=== PATIENT | female | born 1990 | race Caucasian/White ===

== ENCOUNTER → 2017-04-02 08:26 | Outpatient (CLI) | payer MEDICAID, SELFPAY ==
[2017-04-07 07:49] LABS: HPV Reflexed? NOT INDICATED
== END ==
PROVIDERS: Family Provider Nurse Practitioner Family; PCP Nurse Practitioner Family; Visit Provider Obstetrics & Gynecology
DX: Z12.4 Encounter for screening for malignant neoplasm of cervix (principal)
CPT/HCPCS: 88175; G0145

== ENCOUNTER → 2017-05-10 15:18 | Outpatient (CLI) | payer MEDICAID, SELFPAY ==
--- NOTE | 2017-05-10 15:25 | CT_ITS ---
STUDY: CT CHEST/THORAX WITH CONTRAST REASON FOR EXAM: Female, 26 years old. Cough, chest tightness, asthma. RADIATION DOSAGE (If Supplied By Facility): CTDIvol = ( 15.27 ) mGy, DLP = ( 501.76 ) mGycm TECHNIQUE: Transaxial imaging was performed following intravenous administration of 100 ml of Isovue 300 contrast material. Multiplanar coronal and sagittal images were reformatted. Individualized dose optimization techniques were used for this CT. COMPARISON: PA and lateral chest x-ray March 06, 2017. FINDINGS: There is subsegmental volume loss with crowding and mild retraction of the nearby fissure in the lateral periphery of the right upper lobe. Similar finding that could be subsegmental crowding or pneumonitis seen in the lateral periphery of the left upper lobe above the level of the thoracic aortic arch. Discoid 6 mm density suggesting a focus of scarring seen in the lateral right middle lobe abutting the pleural surface on series 4 image 72, series 601 image 51. There is no demonstrated pleural abnormality. Normal heart and pericardium. Small wedge-shaped density in the anterior mediastinum consistent with thymic tissue. Normal hilar regions. For the exclusion of pulmonary emboli, there is suboptimal enhancement of the pulmonary arteries compared to the left heart and arterial structures. Allowing for that, however, there is no demonstrated pulmonary embolus Normal aorta arch and descending thoracic aorta. There are degenerative changes of the lower thoracic spine. Incidental note of osseous fusion across the sternomanubrial articulation. There is no demonstrated abnormality of the visualized upper abdomen. CT/Chest WITH Contrast IMPRESSION: 1. Small subsegmental sites of volume loss versus interstitial pneumonitis in the lateral right upper lobe and lateral left upper lobe. 2. Probable 6 mm discoid focus of scarring in the lateral right middle lobe. Electronically Signed: Bobby Gunter MD at 18:30 EST , Service support ,
== END ==
PROVIDERS: Family Provider Nurse Practitioner Family; PCP Nurse Practitioner Family; Visit Provider Nurse Practitioner Family
DX: R05 Cough (principal); R07.89 Other chest pain; J45.40 Moderate persistent asthma, uncomplicated
CPT/HCPCS: 71260; Q9967

== ENCOUNTER → 2017-08-07 11:10 | Outpatient (CLI) | payer MEDICAID, SELFPAY ==
[2017-08-07 12:49] LABS: Hemoglobin A1c 6.1 % (4.2-6.3)
[2017-08-07 12:51] LABS: Cholesterol 154 mg/dL (200); High Density Lipoprotein 50 mg/dL; T4 Free Direct 1.25 ng/dL (0.76-1.46); Thyroid Stim Hormone (TSH) 1.08 uIU/mL (0.358-3.74); Triglycerides 150 mg/dL; Very Low Density Lipoprotein 30 mg/dL (5-40)
== END ==
PROVIDERS: Family Provider Nurse Practitioner Family; PCP Nurse Practitioner Family; Visit Provider Nurse Practitioner Family
DX: E03.9 Hypothyroidism, unspecified (principal); E78.1 Pure hyperglyceridemia; R73.01 Impaired fasting glucose
CPT/HCPCS: 36415; 80061; 83036; 84439; 84443

== ENCOUNTER → 2017-09-17 07:58 | Outpatient (CLI) | payer MEDICAID, SELFPAY ==
--- NOTE | 2017-09-17 10:55 | PFTCOMP ---
COMPLETE PULMONARY FUNCTION TEST INTERPRETATION Brief HPI: Patient is a 27 year old female, currently under the care of Dr. Seymour, who presents to [facility] for complete pulmonary function tests secondary to diagnosis of dyspnea. Respiratory therapist reports good effort and reproducible results. Interpretation: Forced expiration spirometry shows no large airways obstructive ventilatory defect with an FEV1 of 96% predicted. There is no significant bronchodilator response by ATS criteria. Spirograms are of good quality and plateau normally. The respiratory flow volume loop shows a normal pattern. Lung volumes by body plethysmography show a normal total lung capacity at 6.54 L, 106% predicted. All other lung volumes are within normal limits. Diffusion capacity by carbon monoxide is normal at 94% predicted. The airway resistance is normal. No previous pulmonary function tests were available for review. Impression: These pulmonary function tests are within normal limits.
--- NOTE | 2017-09-17 11:08 | PFTCOMP_ITS ---
COMPLETE PULMONARY FUNCTION TEST INTERPRETATION Brief HPI: Patient is a 27 year old female, currently under the care of Dr. Seymour , who presents to [facility] for complete pulmonary function tests secondary to diagnosis of dyspnea. Respiratory therapist reports good effort and reproducible results. Interpretation: Forced expiration spirometry shows no large airways obstructive ventilatory defect with an FEV1 of 96% predicted. There is no significant bronchodilator response by ATS criteria. Spirograms are of good quality and plateau normally. The respiratory flow volume loop shows a normal pattern. Lung volumes by body plethysmography show a normal total lung capacity at 6.54 L , 106% predicted. All other lung volumes are within normal limits. Diffusion capacity by carbon monoxide is normal at 94% predicted. The airway resistance is normal. No previous pulmonary function tests were available for review. Impression: These pulmonary function tests are within normal limits.
== END ==
PROVIDERS: Family Provider Nurse Practitioner Family; PCP Nurse Practitioner Family; Visit Provider Internal Medicine Critical Care Medicine
DX: R06.02 Shortness of breath (principal)
CPT/HCPCS: 94060; 94726; 94729

== ENCOUNTER 2017-10-12 18:57 | Emergency (ER) | payer MEDICAID, SELFPAY ==
[2017-10-12 18:59] VITALS: BP 138/79; PULSE 77; RESP 18; TEMP 36.4; O2SAT 99; BMI 29.0
--- NOTE | 2017-10-12 19:17 | CT_ITS ---
STUDY: CT ABDOMEN AND PELVIS WITHOUT CONTRAST REASON FOR EXAM: Female, 27 years old. Lower abdominal pain. RADIATION DOSAGE (If Supplied By Facility): CTDIvol = ( 14.81 ) mGy, DLP = ( 762.37 ) mGycm TECHNIQUE: Transaxial images were obtained from the dome of the diaphragm to the symphysis pubis without oral contrast, and without intravenous contrast. Sagittal and coronal images were reconstructed. Individualized dose optimization techniques were used for this CT. COMPARISON: None. FINDINGS: Evaluation of the abdominal viscera is limited in the absence of intravenous contrast. The visualized lung bases are clear. The visualized portions of the heart and pericardium are within normal limits. The patient is status post cholecystectomy. The liver is low in density, consistent with fatty infiltration. The spleen is normal in size. The pancreas demonstrates an unremarkable unenhanced appearance. The adrenal glands are within normal limits. There are no renal or ureteral stones. There is no hydronephrosis. Normal visualized stomach. There is no bowel obstruction or inflammation. The appendix is visualized and appears normal. There is an ovoid fat density structure adjacent to the sigmoid colon with adjacent inflammation and stranding (image 80 series 601, image 70 series 602 and image 142 series 2). This is consistent with epiploic appendagitis. The aorta is normal in caliber. There is no abdominal or pelvic free air, free fluid, fluid collection or lymphadenopathy. There are no destructive osseous lesions. CT/Abdomen/Pelvis without Cont IMPRESSION: Epiploic appendagitis adjacent to the sigmoid colon. No bowel obstruction or inflammation. Normal appendix. No urinary calculi. No hydronephrosis. Fatty liver. Electronically Signed: Scotty Romero, at 20:59 EDT Tel , Service support ,
[2017-10-12 19:43] LABS: Absolute Lymphocyte Count 1.48 X10^3/ul (0.83-4.51); Basophil# 0.02 X10^3/uL; Basophil% 0.3 % (0-1); Eosinophil# 0.49 X10^3/uL; Eosinophils% 6.6 % (0-5); Lymphocyte # 1.48 X10^3/ul (4.0); Lymphocyte % 19.9 % (19-41); Mean Corp Hgb Conc 33.3 g/gl (32-36); Mean Corpuscular Hgb 29.2 pg (27.0-32.0); Mean Corpuscular Volume 87.7 fL (81-99); Mean Platelet Vol. 11.4 fl (6.2-12.0); Monocyte% 6.7 % (0-10); Neutrophil # 4.95 X10^3/uL (2.7-7.7); Neutrophil % 66.4 % (47-70); POSITIVE COUNT NO; POSITIVE DIFFERENTIAL NO; POSITIVE MORPHOLOGY NO; Platelet Count 201 K/mm3 (150-450); RBC Distribution Width CV 13.1 % (11.6-14.6); RBC Distribution Width SD 41.7 fl (35.1-43.9); Red Blood Count 4.79 M/mm3 (4.2-5.4); White Blood Count 7.5 K/mm3 (4.4-11.0)
[2017-10-12] MEDS: 0.9% Normal Saline 1,000 ML 1000 ML IV (19:44)
[2017-10-12] MEDS: Ondansetron 4 MG/2 ML Vial IV (19:44)
[2017-10-12] MEDS: Ketorolac 30 MG/ML Syringe IV (19:44)
[2017-10-12 19:55] LABS: Bacteria 0 SEEN /hpf (None Seen); Mucous, Urine 0 SEEN /hpf (<or=2+); Red Blood Cells-Urine 0 SEEN /hpf (0-5)
[2017-10-12 19:56] LABS: Anion Gap 7 (5-15); BUN 13 mg/dL (7-18); BUN/Creat Ratio 16.3 RATIO (10-20); Calcium,Total 9.1 mg/dL (8.5-10.1); Chloride 104 mmol/L (98-107); EST Glomerular Filtration Rate 92 mL/min (>60); Est Glom Filt Rate - Afr Amer 111 mL/min (>60); Estimated Creatinine Clearance 110.39 ml/min; Glucose 98 mg/dL (74-106); Potassium 3.8 mmol/L (3.5-5.1); Sodium Level 139 mmol/L (136-145)
[2017-10-12 20:19] LABS: Color, Urine Yellow (Yellow); Glucose, Dipstick Normal (Normal); Ketone-Dipstick 15 mg/dl (Negative); Leukocyte Esterase-Dipstick 25 /ul (Negative); Nitrite-Dipstick Negative (Negative); Occult Blood-Urine Negative /ul (Negative); Protein-Dipstick 15 mg/dl (Negative); Specific Gravity, Urine 1.015 (1.002-1.030); Urine Clarity Sl. Cloudy (Clear); Urine Urobilinogen Normal (Normal)
[2017-10-12 20:33] LABS: Pregnancy, Serum, hCG Quali. NEGATIVE Negative (0-9 Nonpreg)
[2017-10-12 20:50] LABS: Urine Bilirubin Dipstick 1 mg/dL (Negative)
[2017-10-12 20:51] LABS: Squamous Epithelial Cells - UA 5-10 SEEN /hpf (5-10); White Blood Cells 5-10 SEEN /hpf (0-5)
[2017-10-12] MEDS: 0.9% Normal Saline 1,000 ML 150 ML IV (21:00)
--- NOTE | 2017-10-12 21:28 | ED.VISSUMM ---
- ER Visit Summary Date of Service: 10/12/17 Chief Complaint: Abdominal pain History of Present Illness: The patient is a 27 F who presents with abdominal pain for the last 2 weeks. She describes it as a generalized abdominal cramping and nausea. She was seen in urgent care and given 7 days of antibiotics for UTI. She finished these yesterday. Patient states her symptoms are not really improved. She has not had fever. She has no dysuria or vaginal discharge. She has had normal bowel movements. Physical Examination: Vital signs are unremarkable. Patient sitting upright in bed. She is nontoxic appearing. Head neck examination is normal. Heart is regular rate and rhythm. Lung sounds are clear. Abdomen is soft with mild lower abdominal tenderness on exam. No guarding or rebound. She has no back or CVA tenderness. Test Results: CBC and chemistry studies are normal. Urinalysis shows no sign of acute infection. Patency test is negative. CT flank shows epiploic appendigitis adjacent to the sigmoid colon. Normal appendix is noted. No bowel inflammation noted. Emergency Department Course and Treatment: Patient was given IV fluids, Toradol, and Zofran. On repeat evaluation she does feel improved. Test results were discussed with her. I did advise her that this is a self-limited condition and will improve on its own. She does feel better after Toradol and Zofran will be given prescriptions for the same. Treatment Plan: [] Disposition: Discharge Impression: Epiploic appendigitis This note was generated with [employer] dictation software. It may contain incorrect words, spelling, and punctuation that were not noted in review of the chart prior to signing ED Disposition - Plan for ED Patient: Chief Complaint: Abd Pain Referrals: Manny Sinha, FOUR CORNER STAYER MACHINE OPERATOR-C [Primary Care Provider] -
--- NOTE | 2017-10-12 21:33 | DCINST.ED_ITS ---
ED Disposition - Plan for ED Patient: Disposition: Home or Assisted Living Chief Complaint: Abd Pain Prescriptions: Ondansetron [Zofran Odt] 4 mg PO Q8H PRN PRN #10 tablet PRN Reason: Nausea Ketorolac [Toradol] 10 mg PO Q6H PRN #20 tablet PRN Reason: Pain Referrals: Manny Sinha, ELECTRONIC SCANNER OPERATOR-C [Primary Care Provider] - 1 Week Additional Instructions: Your CT scan reveals epiploic appendigitis. This is inflammation of the fat that surrounds the intestine. It is a self limited condition and will get better on it's own.
[2017-10-12 21:39] VITALS: BP 124/77; PULSE 61; RESP 15; O2SAT 99
== END 2017-10-12 21:40 | disposition home or self-care (01) ==
PROVIDERS: Emergency Provider Emergency Medicine; Family Provider Nurse Practitioner Family; PCP Nurse Practitioner Family
DX: K36 Other appendicitis (principal); J45.909 Unspecified asthma, uncomplicated; Z79.899 Other long term (current) drug therapy; Z87.440 Personal history of urinary (tract) infections; Z87.19 Personal history of other diseases of the digestive system
CPT/HCPCS: 74176; 80048; 81001; 84703; 85025; 96361; 96374; 96375; 99283; J7030; A4216; J2405

== ENCOUNTER → 2017-10-21 20:00 | Outpatient (CLI) | payer MEDICAID, SELFPAY | PROVIDERS: Family Provider Nurse Practitioner Family; PCP Nurse Practitioner Family; Visit Provider Nurse Practitioner Acute Care | DX: G47.19 Other hypersomnia (principal) | CPT/HCPCS: 95810 ==

== ENCOUNTER → 2018-01-10 08:57 | Outpatient (CLI) | payer MEDICAID, SELFPAY ==
--- NOTE | 2018-01-10 09:08 | RAD_ITS ---
STUDY: AIR-CONTRAST UPPER GI SERIES. REASON FOR EXAM: Female, 27 years old. Tightness of the throat. Feels a lump in the throat. FLUOROSCOPY TIME (if supplied): (0:30) minutes/seconds. 20 fluoroscopic images were obtained. TECHNIQUE: The patient ingested barium. Multiple images of the esophagus, stomach and duodenum were obtained. COMPARISON: None. FINDINGS: The esophagus is unremarkable. There is no evidence of esophageal obstruction. No mass lesion is seen. There is no evidence of gastroesophageal reflux. The stomach and duodenum are unremarkable. No evidence of ulceration. No mass lesion is present. IMPRESSION: Unremarkable air contrast upper GI series. Electronically Signed: Sumanth Richards MD at 9:06 EST Tel [phone], Service support , STUDY: X-RAY - ESOPHAGUS (BARIUM SWALLOW) WITH FLUOROSCOPY REASON FOR EXAM: Female, 27 years old. Throat tightness. Feels a lump. TECHNIQUE: 19 view(s) of the esophagus were obtained following swallowing of barium. FLUOROSCOPY TIME (if supplied): (0:15) minutes/seconds COMPARISON: None. FINDINGS: There is no demonstrated esophageal foreign body. There is no demonstrated stricture or mucosal abnormality. Normal gastroesophageal junction, without a demonstrated hiatal hernia. The patient ingest a 12 mm tablet of barium without any difficulty. Normal visualized aortic arch and descending thoracic aorta. Normal visualized pulmonary parenchyma. Normal visualized osseous structures of the thorax. RAD/Upper GI w/BA Swallow IMPRESSION: Normal plain film x-ray examination (barium swallow) of the esophagus. Electronically Signed: Sumanth Richards MD at 9:07 EST Tel [phone], Service support ,
== END ==
PROVIDERS: Family Provider Nurse Practitioner Family; PCP Nurse Practitioner Family; Referring Provider Surgery; Visit Provider Surgery
DX: K21.9 Gastro-esophageal reflux disease without esophagitis (principal)
CPT/HCPCS: 74246

== ENCOUNTER → 2018-01-18 12:53 | Outpatient (CLI) | payer MEDICAID, SELFPAY ==
--- NOTE | 2018-01-18 16:00 | BRONCHALL_ITS ---
Bronchoprovocation Challenge - Bronchoprovocation Challenge Bronchoprovocation Challenge: BRONCHOPROVOCATION STUDY INTERPRETATION Brief HPI: Patient is a 27 year old fe-male, currently under the care of Dr. Seymour, who presents to [facility] for a bronchoprovocation study secondary to diagnosis of dyspnea. Respiratory therapist reports good effort and reproducible results. Interpretation: Initial spirometry showed no large airways obstructive ventilatory defect. The patient was then given increasingly concentrated doses of methacholine in a stepwise fashion, using a modified ATS protocol. The patient had a significant reduction in FEV1 by 22% and a calculated PD20 of 0.549. Impression: Positive Bronchoprovocation study. This in a range that is not diagnostic of asthma.
== END ==
PROVIDERS: Family Provider Nurse Practitioner Family; PCP Nurse Practitioner Family; Referring Provider Internal Medicine Critical Care Medicine; Visit Provider Internal Medicine Critical Care Medicine
DX: R06.02 Shortness of breath (principal)
CPT/HCPCS: 94070; 95070; J3490; J7674

== ENCOUNTER 2018-01-21 06:51 | Day surgery (SDC) | payer MEDICAID, SELFPAY ==
--- NOTE | 2018-01-21 | IMM_PTH ---
PATIENT: BALDO KAPLAN LOC: EN U#:[id number] AGE/SX: 27/F ROOM: RE01/21/[address]: Dr. Jae Oates MD : 1990 BED: DIS: 01/21/2018 SPEC #: [id number] RECD: 01/24/18 10:28 STATUS: GER PRIMO #: [id number] RYLEE: 01/21/18 00:[address]: Jae Oates DEPT: IMMUNOHISTOCHEMISTRY RECD BY: Domitila Aly ENTERED: 01/24/18 10:28 SP TYPE: IMMUNO OTHR DR: Manny Sinha, NEON TUBE PUMPER-C Tissues: A - Stomach, NOS Procedures: H Pylori (initial) PHYSICIAN & INSTITUTION [place] [id number] SPECIMEN INFORMATION: Tissue Source: A - Antral biopsy Clinical Info: GERD Specimen Number: [id number] CPT code: 97680 METHODOLOGY: Deparaffinized sections of prefer/formalin-fixed tissue or PAP/DQ stained slides are incubated with monoclonal/polyclonal antibodies/oligonucleotide probes. Localization is made via biotin free immunoperoxidase method. Appropriate controls are performed and reacted as expected. Results on target cell population are indicated in the following table: RESULTS: ANTIBODY / CLONE RESULT Block A H Pylori (polyclonal) negative These tests were developed and their performance characteristics determined by [facility]. They may not have been cleared or approved by the U.S. Food and Drug Administration. The FDA has determined that such clearance or approval is not necessary. INTERPRETATION: A. Antral biopsy: Negative for Helicobacter pylori organisms. SJ:mary ann 01/25/18
[2018-01-21 07:21] LABS: Internal QC Validated? YES +Cl - CLEAR BKGD; Pregnancy, Urine Negative Negative
[2018-01-21 07:32] VITALS: BP 132/86; PULSE 89; RESP 16; TEMP 36.8; O2SAT 98; BMI 29.2
--- NOTE | 2018-01-21 08:00 | GASB_PTH ---
PATIENT: BALDO KAPLAN LOC: EN U#:[id number] AGE/SX: 27/ ROOM: RE01/21/[address]: Dr. Jae Oates MD : 1990 BED: DIS: 01/21/2018 SPEC #: [id number] RECD: 01/21/18 13:45 STATUS: GER PRIMO #: [id number] RYLEE: 01/21/18 08:[address]: Jae Oates DEPT: SURGICAL PATHOLOGY RECD BY: Manny Llanos ENTERED: 01/21/18 13:45 SP TYPE: Gastric Bx OTHR DR: Manny Sinha, WIRE DRAWING DIE MAKER-C Tissues: A - Gastric mucous membrane B - Gastric mucous membrane Procedures: Surgery Specimen Level IV HEADER OPERATION: EGD - PH probe ([facility] [place] PRE-OP DIAGNOSIS: Gastroesophageal reflux TISSUE SUBMITTED: A. Antrum biopsy for H. Pylori and path, B. GE junction biopsy MICROSCOPIC DIAGNOSIS A. Antrum biopsy: Mild gastritis. See microscopic description and comment. B. GE junction, biopsy: Fragments of squamous mucosa with chronic inflammation. ROBERTO:mary ann 01/24/18 COMMENT A. The results of immunohistochemistry for Helicobacter pylori will be reported separately ([id number]). MICROSCOPIC DESCRIPTION Slides are reviewed. A. The specimen shows fragments of gastric mucosa with chronic inflammatory cell infiltrates in the lamina propria consisting of lymphocytes and plasma cells, consistent with mild chronic gastritis. GROSS DESCRIPTION A - Received in fixative is one container labeled with the patient's name and designated antrum biopsy. The specimen consists of three irregular fragments of light alarcon soft tissue that in aggregate measure 0.6 x 0.3 x 0.1 cm. The specimen is totally submitted in one cassette. B - Received in fixative is one container labeled with the patient's name and designated GE junction biopsy. The specimen consists of two irregular fragments of light alarcon soft tissue that in aggregate measure 0.3 x 0.3 x 0.1 cm. The specimen is totally submitted in one cassette. / ROBERTO:mary ann 01/21/18 TC:3 CPT: 30195 x2
[2018-01-21 08:10] VITALS: BP 112/64; BP 132/86; PULSE 78; RESP 16; TEMP 36.3; O2SAT 95
[2018-01-21 08:15] VITALS: BP 116/61; BP 132/86; PULSE 84; RESP 16; O2SAT 96
--- NOTE | 2018-01-21 08:18 | OP.ENDO_ITS ---
Patient Name: Yareli Dejesus Procedure Date: 01/21/2018 7:39 AM Date of : 1990 Age: 27 Procedure: Upper GI endoscopy Indications: Suspected reflux esophagitis, Gastro-esophageal reflux disease Providers: Jae Oates MD Medicines: Monitored Anesthesia Care Patient Profile: This is a 27 year old female. Refer to note in patient chart for documentation of history and physical. Complications: No immediate complications. Estimated blood loss: Minimal. Procedure: Pre-Anesthesia Assessment: - Prior to the procedure, a History and Physical was performed, and patient medications and allergies were reviewed. The patient's tolerance of previous anesthesia was also reviewed. The risks and benefits of the procedure and the sedation options and risks were discussed with the patient. All questions were answered, and informed consent was obtained. Prior Anticoagulants: The patient has taken no previous anticoagulant or antiplatelet agents. After reviewing the risks and benefits, the patient was deemed in satisfactory condition to undergo the procedure. After obtaining informed consent, the endoscope was passed under direct vision. Throughout the procedure, the patient's blood pressure, pulse, and oxygen saturations were monitored continuously. The gastroscope was introduced through the mouth, and advanced to the second part of duodenum. The upper GI endoscopy was accomplished without difficulty. The patient tolerated the procedure well. Scope In: 7:59:23 AM Scope Out: 8:05:58 AM Total Procedure Duration Time 0 hours 6 minutes 35 seconds Findings: Esophagitis with no bleeding was found at the gastroesophageal junction. Biopsies were taken with a cold forceps for histology. The exam was otherwise without abnormality. The cardia and gastric fundus were normal on retroflexion. Biopsies were taken with a cold forceps in the gastric antrum for Helicobacter pylori testing. The SALDANA capsule was activated and then calibrated by submersion into the appropriate buffer solutions. The SALDANA capsule with delivery system was introduced through the mouth and advanced into the esophagus, such that the SALDANA pH capsule was positioned 36 cm from the incisors, which was 6 cm proximal to the GE junction. Suction was applied to the well of the SALDANA pH capsule to suck in the adjacent mucosa of the esophagus using the external vacuum pump for 30 seconds. The SALDANA pH capsule was then deployed by depressing the plunger on top of the handle to advance the locking pin into the mucosa, thereby attaching the capsule to the esophagus. The plunger was then rotated a quarter turn clockwise to release the capsule from the delivery system. The delivery system was then withdrawn. Endoscopy was utilized for probe placement and diagnostic evaluation. The scope was reinserted to evaluate placement of the SALDANA capsule. Visualization showed the SALDANA capsule to be in an appropriate position. There is no endoscopic evidence of any significant findings in the cardia (on retroflexion). No hiatal hernia appreciated. Impression: - Reflux esophagitis. Biopsied. - The examination was otherwise normal. - Biopsies were taken with a cold forceps for Helicobacter pylori testing. - The SALDANA capsule was activated and then calibrated by submersion into the appropriate buffer solutions. - The SALDANA pH capsule was positioned 36 cm from the incisors, which was 6 cm proximal to the GE junction. Recommendation: - Discharge patient to home. - Resume previous diet. - Await pathology results. - Continue present medications except antacids. Resume reflux medications after probe returned. Procedure Code(s): --- Professional --- 09083, Esophagogastroduodenoscopy, flexible, transoral; with biopsy, single or multiple 82482, 51, Esophagus, gastroesophageal reflux test; with mucosal attached telemetry pH electrode placement, recording, analysis and interpretation Diagnosis Code(s): --- Professional --- K21.0, Gastro-esophageal reflux disease with esophagitis CPT copyright 2017 [employer]. All rights reserved. The codes documented in this report are preliminary and upon retail gift card merchandising review may be revised to meet current compliance requirements. Jae Oates MD 01/21/2018 8:18:21 AM This report has been signed electronically. Number of Addenda: 0 Note Initiated On: 01/21/2018 7:39 AM
[2018-01-21 08:20] VITALS: BP 109/66; BP 132/86; PULSE 80; RESP 16; O2SAT 97
[2018-01-21 08:26] VITALS: BP 111/65; BP 132/86; PULSE 70; RESP 18; TEMP 36.3; O2SAT 98
[2018-01-21 08:58] VITALS: BP 132/86
== END 2018-01-21 09:00 | disposition home or self-care (01) ==
LOC: EN 06:52 → AC 06:53
PROVIDERS: Anesthesiology; Family Provider Nurse Practitioner Family; PCP Nurse Practitioner Family; Referring Provider Surgery; Visit Provider Surgery
PROC: (CPT 43239; principal; 2018-01-21 07:30)
DX: K21.0 Gastro-esophageal reflux disease with esophagitis (principal); K29.70 Gastritis, unspecified, without bleeding; E03.9 Hypothyroidism, unspecified; E78.5 Hyperlipidemia, unspecified; J45.909 Unspecified asthma, uncomplicated; E66.3 Overweight; F32.9 Major depressive disorder, single episode, unspecified; Z79.899 Other long term (current) drug therapy; Z87.19 Personal history of other diseases of the digestive system
CPT/HCPCS: 43239; 81025; 88305; 88342; J7120

== ENCOUNTER → 2018-02-26 09:28 | Outpatient (CLI) | payer MEDICAID, SELFPAY ==
[2018-01-25 14:14] VITALS: BMI 29.2
[2018-02-26 10:51] LABS: Hemoglobin A1c 6.1 % (4.2-6.3)
[2018-02-26 11:02] LABS: ALB/GLOB Ratio 1.1 RATIO (0.9-2.4); AST(SGOT) 23 U/L (15-37); Alanine Aminotransfer ALT/SGPT 36 U/L (13-56); Alkaline Phosphatase 51 U/L (45-117); Anion Gap 9 (5-15); BUN 11 mg/dL (7-18); BUN/Creat Ratio 14.8 RATIO (10-20); Chloride 104 mmol/L (98-107); Cholesterol 173 mg/dL (200); Creatinine, Serum 0.74 mg/dL (0.55-1.02); EST Glomerular Filtration Rate 99 mL/min (>60); Est Glom Filt Rate - Afr Amer 120 mL/min (>60); Globulin 3.7 g/dL (2.2-4.2); Glucose 90 mg/dL (74-106); High Density Lipoprotein 53 mg/dL; Potassium 4.1 mmol/L (3.5-5.1); Protein, Total 7.7 g/dL (6.4-8.2); Sodium Level 139 mmol/L (136-145); T4 Free Direct 1.11 ng/dL (0.76-1.46); Thyroid Stim Hormone (TSH) 1.34 uIU/mL (0.358-3.74); Triglycerides 163 mg/dL; Very Low Density Lipoprotein 33 mg/dL (5-40)
== END ==
PROVIDERS: Family Provider Nurse Practitioner Family; PCP Nurse Practitioner Family; Referring Provider Nurse Practitioner Family; Visit Provider Nurse Practitioner Family
DX: E78.5 Hyperlipidemia, unspecified (principal); E03.9 Hypothyroidism, unspecified; R73.01 Impaired fasting glucose
CPT/HCPCS: 36415; 80053; 80061; 83036; 84439; 84443

== ENCOUNTER 2018-03-03 10:19 | Day surgery (SDC) | payer MEDICAID, SELFPAY ==
[2018-01-25 14:14] VITALS: BMI 29.2
[2018-03-03 10:29] VITALS: BP 149/89; PULSE 94; RESP 16; TEMP 37; O2SAT 99
== END 2018-03-03 11:13 | disposition home health service (06) ==
PROVIDERS: Family Provider Nurse Practitioner Family; PCP Nurse Practitioner Family; Referring Provider Surgery; Visit Provider Surgery
PROC: F00ZJWZ Instrumental Swallowing and Oral Function Assessment using Swallowing Equipment (ICD-10-PCS; CPT 43235; principal; 2018-03-03 09:55)
DX: K21.9 Gastro-esophageal reflux disease without esophagitis (principal)
CPT/HCPCS: 78258

== ENCOUNTER → 2018-04-04 16:46 | Outpatient (CLI) | payer MEDICAID, SELFPAY ==
[2018-01-25 14:14] VITALS: BMI 29.2
[2018-04-08 12:08] LABS: Alternaria tenuis <0.10 kU/L (Class 0); Aspergillus fumigatus <0.10 kU/L (Class 0); Cladosporium herbarum <0.10 kU/L (Class 0); D farinae Mite 1.46 kU/L (Class III); D pteronyssinus 2.03 kU/L (Class III); Dog Epithelia 0.21 kU/L (Class 0/I)
[2018-04-09 12:59] LABS: Cat Hair / Dander,Stand 2.58 kU/L (Class III); Penicillium Notatum <0.10 kU/L (Class 0)
== END ==
PROVIDERS: Family Provider Nurse Practitioner Family; PCP Nurse Practitioner Family; Referring Provider Otolaryngology; Visit Provider Otolaryngology
DX: J30.9 Allergic rhinitis, unspecified (principal)
CPT/HCPCS: 36415; 86003